=== PATIENT | male | born 1990 | race Hispanic/Latino ===

== ENCOUNTER → 2023-10-09 08:38 | Outpatient (REF) | payer OTHER, SELFPAY ==
[2023-10-09 09:53] LABS: % Basophils 0.4 % (0-2); % Eosinophils 2.8 % (0-6); % Immature Granulocytes 0.3 % (0-0.5); % Lymphocytes 41.3 % (20.5-51.1); % Monocytes 7.7 % (1.7-9.3); % Neutrophils 47.5 % (42.2-75.2); Absolute Eosinophils 0.2 10^3/uL (0-0.7); Absolute Lymphocytes 2.9 10^3/uL (1.2-3.4); Absolute Monocytes 0.5 10^3/uL (0.1-0.6); Absolute Neutrophils 3.3 10^3/uL (1.4-6.5); Hematocrit 45.4 % (39.0-52.0); Hemoglobin 15.4 g/dL (13.0-18.0); Mean Corp Hgb Conc. 33.9 g/dL (33.0-37.0); Mean Corpuscular Volume 82.5 fL (80.0-94.0); Mean Platelet Volume 10.7 fL (7.4-10.4); Nucleated Red Blood Cells % 0 % (-); Platelet Count 277 10^3/uL (130-400); Red Cell Dist. Width 13.9 % (11.5-14.5); White Blood Cell Count 6.9 10^3/uL (4.8-10.8)
[2023-10-09 10:26] LABS: Glycohemoglobin (HgbA1c) 5.5 % (4.0-5.6)
[2023-10-09 10:34] LABS: ALT (SGPT) 52 U/L (0-50); AST (SGOT) 30 U/L (17-59); Albumin 4.6 g/dl (3.5-5.0); Alkaline Phosphatase 83 U/L (38-126); Blood Urea Nitrogen 14 mg/dl (9-20); Calcium 9.3 mg/dl (8.4-10.2); Carbon Dioxide 26 mmol/L (22-30); Chloride 106 mmol/L (98-107); Glucose 95 mg/dl (70-99); HDL Cholesterol 47 mg/dl; LDL Cholesterol, Calculated 100 mg/dl; Potassium 4.5 mmol/L (3.5-5.1); Sodium 140 mmol/L (135-145); Total Bilirubin 0.4 mg/dl (0.2-1.3); Total Cholesterol 179 mg/dl (50-199); Total Protein 7.3 g/dl (6.3-8.2); Triglyceride 164 mg/dl (10-149); Very Low Density Lipoprotein 32 mg/dl (0-30); eGFR > 60.00
[2023-10-09 10:51] LABS: Vitamin D, 25-OH*** 42.5 ng/mL (30-80)
[2023-10-09 11:05] LABS: TSH Reflex To Free T4 2.15 uIU/ml (0.47-4.68)
== END ==
LOC: CLINIC 08:38
PROVIDERS: ATTENDING PHYSICIAN Nurse Practitioner Acute Care
DX: Z00.00 Encounter for general adult medical examination without abnormal findings (principal)
CPT/HCPCS: 36415; 80053; 80061; 82306; 83036; 84443; 85025